=== PATIENT | female | born 1960 | race American Indian/Alaskan Native ===

== ENCOUNTER 2019-10-11 13:01 | Emergency (ER) | payer MEDICAID ==
--- NOTE | 2019-10-11 13:24 | Emergency Department Report ---
Blank Doc - Documentation Documentation: 59-year-old female that presents with midsternum chest pains that is worse with laying down and burning sensation chest. Denies any SOB. This initial assessment/diagnostic orders/clinical plan/treatment(s) is/are subject to change based on patient's health status, clinical progression and re- assessment by fellow clinical providers in the ED. Further treatment and workup at subsequent clinical providers discretion. Patient/guardians urged not to elope from the ED as their condition may be serious if not clinically assessed and managed. Initial orders include: 1- Patient sent to [facility] for further evaluation and treatment 2- EKG 3- CXR 4- labs
[2019-10-11 13:26] VITALS: BP 165/86
--- NOTE | 2019-10-11 13:50 | XRay Report ---
CHEST 2 VIEWS INDICATION / CLINICAL INFORMATION: Chest Pain. COMPARISON: None available. FINDINGS: SUPPORT DEVICES: None. HEART / MEDIASTINUM: No significant abnormality. LUNGS / PLEURA: No significant pulmonary or pleural abnormality. No pneumothorax. ADDITIONAL FINDINGS: No significant additional findings. IMPRESSION: 1. No acute abnormality of the chest. Signer Name: Cesar Anne MD Signed: 10/11/2019 1:45 PM Workstation Name: [id number]
[2019-10-11 14:23] LABS: Basophils # (Auto) 0.1 K/mm3 (0.0-0.1); Basophils % (Auto) 0.7 % (0.0-1.8); Eosinophils # (Auto) 0.2 K/mm3 (0.0-0.4); Eosinophils % (Auto) 1.6 % (0.0-4.3); Hematocrit 39.7 % (30.3-42.9); Hemoglobin 13.1 gm/dl (10.1-14.3); Lymphocytes # (Auto) 2.4 K/mm3 (1.2-5.4); Lymphocytes % (Auto) 23.7 % (13.4-35.0); Mean Corpuscular HGB Conc 33 % (30-34); Mean Corpuscular Volume 85 fl (79-97); Monocytes # (Auto) 0.8 K/mm3 (0.0-0.8); Monocytes % (Auto) 7.8 % (0.0-7.3); Platelet Count 262 K/mm3 (140-440); Red Blood Count 4.69 M/mm3 (3.65-5.03); Red Cell Distribution Width 14.7 % (13.2-15.2)
[2019-10-11 14:48] LABS: Alanine Aminotransferase 10 units/L (7-56); Albumin 4.1 g/dL (3.9-5); BUN/Creatinine Ratio 9; Blood Urea Nitrogen 7 mg/dL (7-17); Calcium 9.6 mg/dL (8.4-10.2); Hemolysis Index 9
[2019-10-11] MEDS ORDERED: KETOROLAC 30 MG/1 ML INJ IM ONE (15:14)
--- NOTE | 2019-10-11 16:18 | Ultrasound Report ---
ULTRASOUND ABDOMEN, COMPLETE INDICATION: upper abdominal pain. COMPARISON: None available. FINDINGS: Pancreas: Normal. Abdominal Aorta: Normal. IVC: Normal. Liver: 2 echogenic lesions anterior right hepatic lobe measuring 1.2 cm and 3.1 cm. Gallbladder: Normal. Bile ducts: Normal. Common Bile Duct measures 4.9 mm. Right Kidney: Normal. Left Kidney: Normal. Spleen: Normal. Free fluid: None. Additional Findings: None. IMPRESSION: 1. Negative for gallstones or biliary dilatation. 2. Indeterminate echogenic liver lesions. Hemangiomas are the most likely etiology. Further evaluatio n could be obtained with multiphase CT if clinically indicated. Signer Name: Anthony Perry MD Signed: 10/11/2019 4:13 PM Workstation Name: [id number]
[2019-10-11 16:54] LABS: Bilirubin,Urine NEG (Negative); Blood,Urine MOD (Negative); Color,Urine Yellow (Yellow); Mucus,Urine FEW /HPF; Protein,Urine <15 mg/dL mg/dL (Negative); Urobilinogen,Urine < 2.0 mg/dL (<2.0)
--- NOTE | 2019-10-11 17:02 | Emergency Department Report ---
ED Chest Pain HPI - General Chief Complaint: Chest Pain Stated Complaint: CHEST PAIN Time Seen by Provider: 10/11/19 13:22 Source: patient Mode of arrival: Ambulatory Limitations: No Limitations - History of Present Illness Initial Comments: 59-year-old female presents to the emergency department with complaint of a three-day history of some midsternal chest pain. Patient says that the pain worsens when she presses on her chest, leans forward or lays on her chest, or when she lifts up her arms into the air. She denies any fever, ba ck pain, shortness of breath, vomiting or diaphoresis. She does have some occasional nausea and also says that she has had increased flatulence. She has a past medical history of asthma and a CVA without any residual deficits. She also has a history of severe depression. She denies any tobacco or illicit drug use. She denies any family history of early cardiac disease or events. She denies any recent travel, recent immobility, lower extremity swelling. The patient went to see her primary care physician, Dr. Antonio at [facility], and was told to come to the emergency department for further evaluation. Severity scale (0 -10): 3 - Related Data Previous Rx's Medication Instructions Recorded Last Taken Type Ondansetron [Zofran Odt] 4 mg PO Q8HR PRN #15 tab.rapdis 10/11/19 Unknown Rx Allergies Allergy/AdvReac Type Severity Reaction Status Date / Time No Known Allergies Allergy Unverified 10/11/19 13:04 Heart Score - HEART Score History: Slightly suspicious EKG: Normal Age: 45-65 Risk factors: 1-2 risk factors Troponin: < normal limit HEART Score: 2 - Critical Actions Critical Actions: 0-3 pts:0.9-1.7%risk of adverse cardiac event.Candidate for discharge ED Review of Systems ROS: Stated complaint: CHEST PAIN Other details as noted in HPI Comment: All other systems reviewed and negative Constitutional: denies: chills, fever Eyes: denies: eye pain, vision change ENT: denies: ear pain, throat pain Respiratory: denies: cough, wheezing Cardiovascular: chest pain. denies: palpitations, edema Gastrointestinal: abdominal pain, nausea. denies: vomiting Genitourinary: denies: dysuria, discharge Musculoskeletal: denies: back pain, arthralgia Skin: denies: rash, lesions Neurological: denies: headache, weakness ED Past Medical Hx - Past Medical History Previous Medical History?: No - Surgical History Past Surgical History?: No - Social History Smoking Status: Never Smoker Substance Use Type: None - Medications Home Medications: Home Medications Medication Instructions Recorded Confirmed Last Taken Type Ondansetron [Zofran Odt] 4 mg PO Q8HR PRN #15 tab.rapdis 10/11/19 Unknown Rx ED Physical Exam - General Limitations: No Limitations - Other Other exam information: GENERAL: The patient is well-developed well-nourished. HEENT: Normocephalic. Atraumatic. Patient has moist mucous membranes. EYES: Extraocular motions are intact. NECK: Supple. Trachea is midline. CHEST/LUNGS: Clear to auscultation. There is no respiratory distress noted. There is reproducible chest pain to palpation to the mid sternum but no crepitus or deformity. HEART/CARDIOVASCULAR: Regular. There is no tachycardia. ABDOMEN: Abdomen is soft, nontender. Patient has normal bowel sounds. There is no abdominal distention. SKIN: Skin is warm and dry. NEURO: The patient is awake, alert, and oriented. The patient is cooperative. The patient has no focal neurologic deficits. The patient has normal speech. MUSCULOSKELETAL: There is no tenderness or deformity. There is no limitation range of motion. There is no evidence of acute injury. ED Course Vital Signs 10/11/19 13:23 Temperature 98.2 F Pulse Rate 99 H Respiratory 18 Rate Blood Pressure 165/86 O2 Sat by Pulse 100 Oximetry MOHAN score - Mohan Score Age > 65: (0) No Aspirin use within the Past 7 Days: (0) No 3 or more CAD Risk Factors: (0) No 2 or more Angina events in past 24 hrs: (1) Yes (If pain is considered angina.) Known CAD with more than 50% Stenosis: (0) No Elevated Cardiac Markers: (0) No ST Deviation Greater than 0.5mm: (0) No MOHAN Score: 1 ED Medical Decision Making - Lab Data Result diagrams: 10/11/19 13:46 10/11/19 13:46 - EKG Data -: EKG Interpreted by De EKG shows normal: sinus rhythm, axis, intervals, QRS complexes, ST-T waves Rate: normal - EKG Data When compared to previous EKG there are: previous EKG unavailable Interpretation: normal EKG - Radiology Data Radiology results: report reviewed, image reviewed interpreted by me: Chest x-ray does not show any pneumonia, pleural effusions, focal consolidation, pneumothorax, or any other acute process. ULTRASOUND ABDOMEN, COMPLETE INDICATION: upper abdominal pain. COMPARISON: None available. FINDINGS: Pancreas: Normal. Abdominal Aorta: Normal. IVC: Normal. Liver: 2 echogenic lesions anterior right hepatic lobe measuring 1.2 cm and 3.1 cm. Gallbladder: Normal. Bile ducts: Normal. Common Bile Duct measures 4.9 mm. Right Kidney: Normal. Left Kidney: Normal. Spleen: Normal. Free fluid: None. Additional Findings: None. IMPRESSION: 1. Negative for gallstones or biliary dilatation. 2. Indeterminate echogenic liver lesions. Hemangiomas are the most likely etiology. Further evaluation could be obtained with multiphase CT if clinically indicated. - Medical Decision Making This patient presents to the emergency department with a three-day history of some midsternal chest discomfort. Her heart and lung sounds are normal auscultation. On examination the chest pain is reproducible both to palpation and with certain movements. An EKG was done that was normal without ST elevation ME, ischemia or dysrhythmia. Chest x-ray did not show any pleural effusions, pneumonia, pneumothorax, focal consolidation, or any other acute process. Patient's labs were unremarkable including CBC, CMP and troponins 2. The patient does not have any risk factors for thromboembolic disease and is low on the well's score criteria and pulmonary embolism rule out criteria. She has a low heart score and MOHAN score. On top of all that, it does appear most consistent with costochondritis or musculoskeletal/chest wall pain. Patient was given a shot of Toradol with some mild relief. Her vital signs have been stable throughout her ED course. As per our protocol, with a heart score of 2 or less in this low risk, low suspicion patient for ACS, her information has been sent over to [facility] cardiology and she will be contacted for close outpatient follow-up. However the patient has also been instructed to return to the emergency department immediately with any worsening of her symptoms with any acute distress. The patient also had some complaints of some bloating or upper abdominal fullness. First I thought it was possible patient could have some cholelithiasis as the source of her symptoms. Her CMP was normal including LFTs, bilirubin and lipase. An ultrasound was done that was negative for gallstones or biliary dilatation. She had some intermediate echogenic liver lesions that radiology felt was most consistent with hemangiomas but they did recommend CT imaging for further differentiation. All this was discussed with the patient and she will follow-up with her primary care physician on how to proceed for outpatient imaging of her liver. - Differential Diagnosis costochondritis, ME, pneumonia, GERD Critical care attestation.: If time is entered above; I have spent that time in minutes in the direct care of this critically ill patient, excluding procedure time. ED Disposition Clinical Impression: Abnormal ultrasound of abdomen, Atypical chest pain, Hypertension Disposition: TO HOME OR SELFCARE Is pt being admited?: No Condition: Stable Instructions: Chest Pain (ED), Hypertension (ED) Additional Instructions: Please follow-up with your primary care physician regarding your abdominal pain and ultrasound results showing some type of liver lesions. Radiology believes this to be a hemangioma but they recommend a CT scan of the abdomen with and without contrast. I have sent her contact information over to [facility] cardiology and someone should be contacting you shortly for close outpatient follow-up. However, if you do not hear something from them in the next few days, please contact their office to set up an outpatient appointment. Return to the emergency department immediately with any worsening of your symptoms or with any acute distress. Prescriptions: Ondansetron [Zofran Odt] 4 mg PO Q8HR PRN #15 tab.rapdis PRN Reason: Nausea Referrals: [facility] [Provider Group] - 2-3 Days [facility] [Outside] - 2-3 Days Time of Disposition: 17:03
== END 2019-10-11 17:17 | disposition home or self-care (01) ==
LOC: ED 13:01
DX: R07.89 Other chest pain (principal); R93.5 Abnormal findings on diagnostic imaging of other abdominal regions, including retroperitoneum; I10 Essential (primary) hypertension
CPT/HCPCS: 36415; 71046; 76705; 80053; 81001; 84484; 85025; 93005; 93010; 96372; 99285; J1885

== ENCOUNTER 2020-01-05 06:27 | Emergency (ER) | payer MEDICAID ==
--- NOTE | 2020-01-05 08:10 | XRay Report ---
ABDOMEN 1 VIEW(S) INDICATION / CLINICAL INFORMATION: MAIN: constipation for 7 days. COMPARISON: None available. FINDINGS: TUBES / LINES: None. BOWEL GAS PATTERN/EXTRALUMINAL GAS: There is gaseous distention of the colon there is a moderate amou nt of stool in the colon. ADDITIONAL FINDINGS: No significant additional findings. IMPRESSION: 1. There is gaseous distention of the colon. There is a moderate amount stool in colon. Signer Name: David Pires MD Signed: 01/05/2020 8:06 AM Workstation Name: [id number]
[2020-01-05 08:23] LABS: Basophils % (Auto) 0.7 % (0.0-1.8); Eosinophils # (Auto) 0.2 K/mm3 (0.0-0.4); Eosinophils % (Auto) 2.9 % (0.0-4.3); Hemoglobin 12.8 gm/dl (10.1-14.3); Lymphocytes # (Auto) 1.7 K/mm3 (1.2-5.4); Lymphocytes % (Auto) 25.3 % (13.4-35.0); Mean Corpuscular HGB Conc 33 % (30-34); Mean Corpuscular Volume 85 fl (79-97); Monocytes # (Auto) 0.9 K/mm3 (0.0-0.8); Monocytes % (Auto) 13.1 % (0.0-7.3); Platelet Count 260 K/mm3 (140-440); Red Blood Count 4.57 M/mm3 (3.65-5.03); Red Cell Distribution Width 13.8 % (13.2-15.2)
[2020-01-05 08:39] LABS: Alanine Aminotransferase 14 units/L (7-56); Albumin 4.1 g/dL (3.9-5); BUN/Creatinine Ratio 9; Blood Urea Nitrogen 8 mg/dL (7-17); Calcium 9.9 mg/dL (8.4-10.2); Hemolysis Index 11
[2020-01-05 08:40] LABS: Bilirubin,Urine NEG (Negative); Blood,Urine SM (Negative); Color,Urine Straw (Yellow); Mucus,Urine FEW /HPF; Protein,Urine <15 mg/dL mg/dL (Negative); Urobilinogen,Urine < 2.0 mg/dL (<2.0); WBC,Urine < 1.0 /HPF (0.0-6.0)
--- NOTE | 2020-01-05 08:40 | Emergency Department Report ---
ED Abdominal Pain HPI - General Chief Complaint: Abdominal Pain Stated Complaint: GAS; BLOATING Time Seen by Provider: 01/05/20 07:36 Source: patient Mode of arrival: Ambulatory Limitations: No Limitations - History of Present Illness Initial Comments: 59-year-old -[place] female patient with history of GERD and depression presents with complaints of constipation and bloating for 7 days. Patient states she did have a very small bowel movement 3 days ago. She states she has been drinking a great deal of prune juice and fiber medications to defecate, however she is not having much success. She denies any hematochezia, nausea/vomiting, urinary symptoms, chest pain, or rectal pain. She does admit to dark stools, however states they are not black. Also denies diarrhea. She states history of hysterectomy 30 years ago. She also admits to having a normal colonoscopy at the age of 52. -: Sudden - Related Data Previous Rx's Medication Instructions Recorded Last Taken Type Ondansetron [Zofran Odt] 4 mg PO Q8HR PRN #15 tab.rapdis 10/11/19 Unknown Rx Polyethylene Glycol/Elect 1,000 ml PO BID 1 Days #1 bottle 01/05/20 Unknown Rx [Golytely] Allergies Allergy/AdvReac Type Severity Reaction Status Date / Time No Known Allergies Allergy Unverified 10/11/19 13:04 ED Review of Systems ROS: Stated complaint: GAS; BLOATING Other details as noted in HPI Constitutional: denies: chills, diaphoresis, fever, malaise, weakness Respiratory: denies: cough, shortness of breath Cardiovascular: denies: chest pain, palpitations Endocrine: denies: excessive sweating Gastrointestinal: abdominal pain, constipation. denies: nausea, vomiting, diarrhea, hematemesis, hematochezia Musculoskeletal: back pain Skin: denies: rash, lesions Neurological: denies: headache Hematological/Lymphatic: denies: easy bleeding, swollen glands ED Past Medical Hx - Past Medical History Previous Medical History?: No - Surgical History Past Surgical History?: No - Social History Smoking Status: Never Smoker Substance Use Type: None - Medications Home Medications: Home Medications Medication Instructions Recorded Confirmed Last Taken Type Ondansetron [Zofran Odt] 4 mg PO Q8HR PRN #15 tab.rapdis 10/11/19 Unknown Rx Polyethylene Glycol/Elect 1,000 ml PO BID 1 Days #1 bottle 01/05/20 Unknown Rx [Golytely] ED Physical Exam - General Limitations: No Limitations General appearance: alert, in no apparent distress - Head Head exam: Present: atraumatic, normocephalic - Eye Eye exam: Present: normal appearance. Absent: scleral icterus - ENT ENT exam: Present: mucous membranes moist - Neck Neck exam: Present: normal inspection - Respiratory Respiratory exam: Present: normal lung sounds bilaterally. Absent: respiratory distress - Cardiovascular Cardiovascular Exam: Present: regular rate, normal rhythm. Absent: systolic murmur, diastolic murmur, rubs, gallop - GI/Abdominal GI/Abdominal exam: Present: distended, tenderness (Generalized), normal bowel sounds. Absent: guarding, rebound - Rectal Rectal exam: Present: normal rectal tone, heme (+) stool. Absent: black stool, bloody stool, fecal impaction, hemorrhoids, mass - Extremities Exam Extremities exam: Present: normal inspection - Back Exam Back exam: Present: normal inspection - Neurological Exam Neurological exam: Present: alert, oriented X3 - Psychiatric Psychiatric exam: Present: normal affect, normal mood - Skin Skin exam: Present: warm, dry, intact, normal color. Absent: rash, cyanosis, diaphoretic ED Course Vital Signs 01/05/20 01/05/20 06:31 10:54 Temperature 97.8 F Pulse Rate 89 87 Respiratory 14 20 Rate Blood Pressure 142/87 Blood Pressure 132/76 [Left] O2 Sat by Pulse 99 100 Oximetry ED Medical Decision Making - Lab Data Result diagrams: 01/05/20 07:58 01/05/20 07:58 Lab Results 01/05/20 01/05/20 01/05/20 Range/Units 07:58 07:58 08:12 WBC 6.6 (4.5-11.0) K/mm3 RBC 4.57 (3.65-5.03) M/mm3 Hgb 12.8 (10.1-14.3) gm/dl Hct 39.0 (30.3-42.9) % MCV 85 (79-97) fl MCH 28 (28-32) pg MCHC 33 (30-34) % RDW 13.8 (13.2-15.2) % Plt Count 260 (140-440) K/mm3 Lymph % (Auto) 25.3 (13.4-35.0) % Andrews % (Auto) 13.1 H (0.0-7.3) % Eos % (Auto) 2.9 (0.0-4.3) % Baso % (Auto) 0.7 (0.0-1.8) % Lymph # 1.7 (1.2-5.4) K/mm3 Andrews # 0.9 H (0.0-0.8) K/mm3 Eos # 0.2 (0.0-0.4) K/mm3 Baso # 0.0 (0.0-0.1) K/mm3 Seg Neutrophils % 58.0 (40.0-70.0) % Seg Neutrophils # 3.8 (1.8-7.7) K/mm3 Sodium 134 L (137-145) mmol/L Potassium 5.4 H (3.6-5.0) mmol/L Chloride 98.8 (98-107) mmol/L Carbon Dioxide 22 (22-30) mmol/L Anion Gap 19 mmol/L BUN 8 (7-17) mg/dL Creatinine 0.9 (0.7-1.2) mg/dL Estimated GFR > 60 ml/min BUN/Creatinine Ratio 9 % Glucose 99 (65-100) mg/dL Calcium 9.9 (8.4-10.2) mg/dL Total Bilirubin 0.20 (0.1-1.2) mg/dL AST 16 (5-40) units/L ALT 14 (7-56) units/L Alkaline Phosphatase 87 (35-129) units/L Total Protein 7.8 (6.3-8.2) g/dL Albumin 4.1 (3.9-5) g/dL Albumin/Globulin Ratio 1.1 % Lipase 19 (13-60) units/L Urine Color Straw (Yellow) Urine Turbidity Clear (Clear) Urine pH 5.0 (5.0-7.0) Ur Specific Patterson 1.009 (1.003-1.030) Urine Protein <15 mg/dl (Negative) mg/dL Urine Glucose (UA) Neg (Negative) mg/dL Urine Ketones Neg (Negative) mg/dL Urine Blood Sm (Negative) Urine Nitrite Neg (Negative) Urine Bilirubin Neg (Negative) Urine Urobilinogen < 2.0 (<2.0) mg/dL Ur Leukocyte Esterase Neg (Negative) Urine WBC (Auto) < 1.0 (0.0-6.0) /HPF Urine RBC (Auto) 2.0 (0.0-6.0) /HPF U Epithel Cells (Auto) < 1.0 (0-13.0) /HPF Urine Mucus Few /HPF 01/05/20 Range/Units 10:29 WBC (4.5-11.0) K/mm3 RBC (3.65-5.03) M/mm3 Hgb (10.1-14.3) gm/dl Hct (30.3-42.9) % MCV (79-97) fl MCH (28-32) pg MCHC (30-34) % RDW (13.2-15.2) % Plt Count (140-440) K/mm3 Lymph % (Auto) (13.4-35.0) % Andrews % (Auto) (0.0-7.3) % Eos % (Auto) (0.0-4.3) % Baso % (Auto) (0.0-1.8) % Lymph # (1.2-5.4) K/mm3 Andrews # (0.0-0.8) K/mm3 Eos # (0.0-0.4) K/mm3 Baso # (0.0-0.1) K/mm3 Seg Neutrophils % (40.0-70.0) % Seg Neutrophils # (1.8-7.7) K/mm3 Sodium (137-145) mmol/L Potassium 4.7 (3.6-5.0) mmol/L Chloride (98-107) mmol/L Carbon Dioxide (22-30) mmol/L Anion Gap mmol/L BUN (7-17) mg/dL Creatinine (0.7-1.2) mg/dL Estimated GFR ml/min BUN/Creatinine Ratio % Glucose (65-100) mg/dL Calcium (8.4-10.2) mg/dL Total Bilirubin (0.1-1.2) mg/dL AST (5-40) units/L ALT (7-56) units/L Alkaline Phosphatase (35-129) units/L Total Protein (6.3-8.2) g/dL Albumin (3.9-5) g/dL Albumin/Globulin Ratio % Lipase (13-60) units/L Urine Color (Yellow) Urine Turbidity (Clear) Urine pH (5.0-7.0) Ur Specific Patterson (1.003-1.030) Urine Protein (Negative) mg/dL Urine Glucose (UA) (Negative) mg/dL Urine Ketones (Negative) mg/dL Urine Blood (Negative) Urine Nitrite (Negative) Urine Bilirubin (Negative) Urine Urobilinogen (<2.0) mg/dL Ur Leukocyte Esterase (Negative) Urine WBC (Auto) (0.0-6.0) /HPF Urine RBC (Auto) (0.0-6.0) /HPF U Epithel Cells (Auto) (0-13.0) /HPF Urine Mucus /HPF - Radiology Data Radiology results: report reviewed ABDOMEN 1 VIEW(S) INDICATION / CLINICAL INFORMATION: MAIN: constipation for 7 days. COMPARISON: None available. FINDINGS: TUBES / LINES: None. BOWEL GAS PATTERN/EXTRALUMINAL GAS: There is gaseous distention of the colon there is a moderate amount of stool in the colon. ADDITIONAL FINDINGS: No significant additional findings. IMPRESSION: 1. There is gaseous distention of the colon. There is a moderate amount stool in colon. CT abdomen pelvis w con INDICATION: Constipation x9 day. TECHNIQUE: All CT scans at this location are performed using the following dose modulation technique: Automated exposure control. CONTRAST: Omnipaque 300, 100 cc IV injection. COMPARISON: None available. CT abdomen: Evaluation the parenchymal organs demonstrate several lesions at the posterior segment of the right hepatic lobe. The larger measures 3.1 cm and appears to be a heman gioma. This corresponds with the ultrasound appearance. The left kidney contains a 1 cm low-density lesion anteriorly which is too small to characterize. The remaining parenchymal organs are unremarkable Negative for abdominal mass, fluid or inflammation. The colon is mildly dilated. Negative for bowel thickening. CT PELVIS: The appendix is normal. Negative for pelvic mass or fluid collection. A right ovarian cyst measures 2.5 cm. A moderate/large amount of colonic stool is seen in the rectum. IMPRESSION: 1. Distal constipation. 2. Low-density liver lesions are likely hemangiomas. 3. 2.5 cm right ovarian cyst. 4. Left renal lesion too small to characterize. - Medical Decision Making Patient here with abdominal pain and bloating due to constipation. WBCs are normal on CBC. CMP shows mildly elevated potassium, on repeat potassium was 4.7. CT abdomen showed constipation and gaseous pattern with significant constipation in the rectum. Patient given soap enema and did have a full bowel movement. Her distention of her abdomen has significantly decreased. Her vitals are normal she states she is feeling much better. She is well-appearing and stable for discharge home. Prescription for GoLYTELY given. Recommend patient remain on a soft diet for the next 1 to 2 days and follow-up with her primary care doctor within 3 days. Discussed strict return precautions in great detail with patient who verbalizes understanding. Critical care attestation.: If time is entered above; I have spent that time in minutes in the direct care of this critically ill patient, excluding procedure time. ED Disposition Clinical Impression: Constipation Qualifiers: Constipation type: other constipation type Qualified Code(s): K59.09 - Other constipation Disposition: DC-01 TO HOME OR SELFCARE Is pt being admited?: No Condition: Stable Instructions: Fecal Impaction (ED) Prescriptions: Polyethylene Glycol/Elect [Golytely] 1,000 ml PO BID 1 Days #1 bottle Referrals: PRIMARY CARE, [Primary Care Provider] - 3-5 Days
--- NOTE | 2020-01-05 10:29 | Cat Scan Report ---
CT abdomen pelvis w con INDICATION: Constipation x9 day. TECHNIQUE: All CT scans at this location are performed using the following dose modulation technique: Automated exposure control. CONTRAST: Omnipaque 300, 100 cc IV injection. COMPARISON: None available. CT abdomen: Evaluation the parenchymal organs demonstrate several lesions at the posterior segment of the right hepatic lobe. The larger measures 3.1 cm and appears to be a hemangioma. This corresponds with the ultrasound appearance. The left kidney contains a 1 cm low-density lesion anteriorly which i s too small to characterize. The remaining parenchymal organs are unremarkable Negative for abdominal mass, fluid or inflammation. The colon is mildly dilated. Negative for bowel t hickening. CT PELVIS: The appendix is normal. Negative for pelvic mass or fluid collection. A right ovarian cyst measures 2.5 cm. A moderate/large amount of colonic stool is seen in the rectum. IMPRESSION: 1. Distal constipation. 2. Low-density liver lesions are likely hemangiomas. 3. 2.5 cm right ovarian cyst. 4. Left renal lesion too small to characterize. Signer Name: Anthony Perry MD Signed: 01/05/2020 10:25 AM Workstation Name: [email or web address]
[2020-01-05 10:55] VITALS: BP 132/76
== END 2020-01-05 13:20 | disposition home or self-care (01) ==
LOC: ED 06:27
DX: K59.00 Constipation, unspecified (principal); R14.0 Abdominal distension (gaseous); K21.9 Gastro-esophageal reflux disease without esophagitis; Z90.710 Acquired absence of both cervix and uterus
CPT/HCPCS: 36415; 74018; 74177; 80053; 81001; 83690; 84132; 85025; 93005; 93010; 99284; Q9967

== ENCOUNTER 2020-01-16 14:53 | Outpatient (CLI) | payer OTHER ==
--- NOTE | 2020-01-16 17:05 | XRay Report ---
CHEST PA AND LATERAL VIEWS INDICATION: J45.20Mild intermittent asthma, uncomplicated/Z02.71Encounter for. COMPARISON: 10/11/2019 FINDINGS: Support devices: None Heart: Normal and unchanged Lungs/Pleura: No acute pulmonary or pleural findings. IMPRESSION: 1. No active disease and no interval change. Signer Name: Justin Bronson MD Signed: 01/16/2020 5:01 PM Workstation Name: [id number]
== END 2020-01-16 14:54 | disposition home or self-care (01) ==
LOC: XRAY 14:53
PROVIDERS: ATTEND Internal Medicine
DX: Z02.71 Encounter for disability determination (principal); J45.20 Mild intermittent asthma, uncomplicated
CPT/HCPCS: 71046

== ENCOUNTER 2020-10-13 08:25 | Outpatient (CLI) | payer OTHER | END 2020-10-13 08:26 | disposition home or self-care (01) | LOC: PF 08:25 | PROVIDERS: ATTEND Internal Medicine | DX: J45.909 Unspecified asthma, uncomplicated (principal) | CPT/HCPCS: 94010; 94729 ==